=== PATIENT | female | born 1970 | race Asian ===

== ENCOUNTER 2019-11-14 16:16 | Emergency (ER) | payer SELFPAY ==
[2019-11-14] MEDS ORDERED: NA CHLORIDE 0.9% 1,000 ML ONE ×2 (18:43→19:03)
[2019-11-14] MEDS ORDERED: ONDANSETRON 4 MG/2 ML VIAL ONE (18:46)
[2019-11-14 18:55] LABS: Urine Blood NEGATIVE (NEG); Urine Glucose NEGATIVE (NEG); Urine Protein NEGATIVE (NEG)
[2019-11-14] MEDS ORDERED: MORPHINE 2 MG/ML SYR ONE (19:03)
[2019-11-14] MEDS ORDERED: PROMETHAZINE INJ 25 MG/ML AMP ONE (19:03)
[2019-11-14] MEDS ORDERED: CIPROFLOXACIN 400mg IV 400 MG/200 ML BAG IV ONE (19:03)
[2019-11-14] MEDS ORDERED: METRONIDAZOLE 500mg IVPB 500 MG/100 ML BAG IV ONE (19:03)
[2019-11-14] MEDS ORDERED: ACETAMINOPHEN 325 MG TABLET ONE (19:06)
[2019-11-14 20:28] LABS: Absolute Lymphocytes (CBC) 1.5 K/uL (0.7-4.9); Basophils % 0.3 % (0-1.3); Lymphocytes % 22.7 % (15.3-44.8); RBC Red Blood Cell Count 4.19 M/uL (3.86-4.86)
[2019-11-14 20:46] LABS: Albumin 3.6 g/dL (3.4-5.0); Bilirubin Direct 0.1 mg/dL (0-0.2); Bilirubin Total 0.6 mg/dL (0.2-1.0); Potassium 3.6 mmol/L (3.5-5.1); Protein, Total 6.8 g/dL (6.4-8.2)
--- NOTE | 2019-11-14 20:48 | EDPHYS ---
Physician Documentation [facility] Name: Flaquita Cantu Age: 49 yrs Sex: Female : 1970 Arrival Date: 11/14/2019 Time: 16:20 Bed 6 Private MD: TOLU Physician Jimmy Koo HPI: 11/13 18:43 This 49 yrs old Female presents to ER via Ambulatory with complaints of Abdominal slade Pain, Diarrhea, Decreased Appetite. 18:43 The patient presents to the emergency department with nausea, diarrhea, that is slade continuous. Onset: The symptoms/episode began/occurred 3 day(s) ago. Possible causes: unknown. The symptoms are aggravated by food , The symptoms are alleviated by nothing. remaining still. Associated signs and symptoms: The patient has no apparent associated signs or symptoms. Severity of symptoms: At their worst the symptoms were moderate in the emergency department the symptoms are unchanged. The patient has not experienced similar symptoms in the past. 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 - Social history:: Smoking status: Patient denies any tobacco usage or history of. ROS: 18:45 Constitutional: Negative for fever, chills, and weight loss, Eyes: Negative for injury, slade pain, redness, and discharge, ENT: Negative for injury, pain, and discharge, Neck: Negative for injury, pain, and swelling, Cardiovascular: Negative for chest pain, palpitations, and edema, Respiratory: Negative for shortness of breath, cough, wheezing, and pleuritic chest pain, Back: Negative for injury and pain, : Negative for injury, bleeding, discharge, and swelling, MS/Extremity: Negative for injury and deformity, Skin: Negative for injury, rash, and discoloration, Neuro: Negative for headache, weakness, numbness, tingling, and seizure, Psych: Negative for depression, anxiety, suicide ideation, homicidal ideation, and hallucinations, Allergy/Immunology: Negative for hives, rash, and allergies, Endocrine: Negative for neck swelling, polydipsia, polyuria, polyphagia, and marked weight changes, Hematologic/Lymphatic: Negative for swollen nodes, abnormal bleeding, and unusual bruising. 18:45 Abdomen/GI: Positive for abdominal pain, diarrhea. Exam: 18:45 Constitutional: This is a well developed, well nourished patient who is awake, alert, slade and in no acute distress. Head/Face: Normocephalic, atraumatic. Eyes: Pupils equal round and reactive to light, extra-ocular motions intact. Lids and lashes normal. Conjunctiva and sclera are non-icteric and not injected. Cornea within normal limits. Periorbital areas with no swelling, redness, or edema. ENT: Nares patent. No nasal discharge, no septal abnormalities noted. Tympanic membranes are normal and external auditory canals are clear. Oropharynx with no redness, swelling, or masses, exudates, or evidence of obstruction, uvula midline. Mucous membranes moist. Neck: Trachea midline, no thyromegaly or masses palpated, and no cervical lymphadenopathy. Supple, full range of motion without nuchal rigidity, or vertebral point tenderness. No Meningismus. Chest/axilla: Normal chest wall appearance and motion. Nontender with no deformity. No lesions are appreciated. Cardiovascular: Regular rate and rhythm with a normal S1 and S2. No gallops, murmurs, or rubs. Normal PMI, no JVD. No pulse deficits. Respiratory: Lungs have equal breath sounds bilaterally, clear to auscultation and percussion. No rales, rhonchi or wheezes noted. No increased work of breathing, no retractions or nasal flaring. Back: No spinal tenderness. No costovertebral tenderness. Full range of motion. Female : Normal external genitalia. Skin: Warm, dry with normal turgor. Normal color with no rashes, no lesions, and no evidence of cellulitis. MS/ Extremity: Pulses equal, no cyanosis. Neurovascular intact. Full, normal range of motion. Neuro: Awake and alert, GCS 15, oriented to person, place, time, and situation. Cranial nerves II-XII grossly intact. Motor strength 5/5 in all extremities. Sensory grossly intact. Cerebellar exam normal. Normal gait. 18:45 Abdomen/GI: Inspection: abdomen appears normal, Bowel sounds: hyperactive, Palpation: mild abdominal tenderness, in all quadrants, Liver: no appreciated palpable abnormalities, Hernia: not appreciated. 18:50 Neck: ROM/movement: is normal, no acute changes, Meningeal signs: are not present, slade Kernig's sign is negative, Brudzinski's sign is negative. 19:31 Respiratory: Exam negative for acute changes, accessory muscles, bronchial sounds, slade chest tenderness, chest pain, decreased breath sounds, grunting, nasal flaring, paradoxical movement, purse lip breathing, prolonged exhalation, respiratory distress, intercostal retractions, rhonchi, shortness of breath, splinting, stridor, wheezing, tachypnea. 19:31 Musculoskeletal/extremity: DVT Exam: No signs of deep vein thrombosis. no pain, no swelling, no tenderness, negative Homans' sign noted on exam, no appreciated bluish discoloration, no erythema, no increased warmth. Vital Signs: 16:29 BP 140 / 75; Pulse 58; Resp 15 S; Temp 98.4(TE); Pulse Ox 99% on R/A; Weight 58.97 kg; ca1 Height 5 ft. 4 in. (164 cm); Pain 7/10; 20:28 BP 129 / 69; Pulse 63; Resp 16; Pulse Ox 98% on R/A; ea 16:29 Body Mass Index 21.92 (58.97 kg, 164 cm) ca1 MDM: 17:31 Patient medically screened. slade 18:47 Differential diagnosis: Nonspecific abd pain, gastritis, cholecystitis, pancreatitis, slade appendicitis, diverticulitis, viral gastroenteritis, gastroenteritis, diverticulitis, gastritis. Data reviewed: vital signs, nurses notes, lab test result(s), radiologic studies, CT scan. 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 Counseling: I had a detailed discussion with the patient and/or guardian regarding: the historical points, exam findings, and any diagnostic results supporting the discharge/admit diagnosis, lab results, radiology results, the need for outpatient follow up, for definitive care, a calenderer. 19:32 ED course: Jovan Banks to check labs and ct's, dispo accordingly. slade 20:38 ED course: Patient declined CT head and abdomen when the tech came to get her for jr8 imaging. Stated that she was ok and did not feel that it was necessary at this time . 11/13 17:34 Order name: Basic Metabolic Panel; Complete Time: 20:47 [facility] 11/13 17:34 Order name: CBC with Diff; Complete Time: 20:38 [facility] 11/13 17:34 Order name: Hepatic Function; Complete Time: 20:47 [facility] 11/13 17:34 Order name: Lipase; Complete Time: 20:47 [facility] 11/13 17:34 Order name: Urine Culture [facility] 11/13 18:02 Order name: Urine Dipstick--Ancillary (enter results); Complete Time: 19:10 11/13 18:02 Order name: Urine --Ancillary (enter results); Complete Time: 19:10 11/13 18:49 Order name: COVID-19 [facility] 11/13 17:34 Order name: IV Saline Lock; Complete Time: 18:37 [facility] 11/13 17:34 Order name: Labs collected and sent; Complete Time: 18:37 [facility] 11/13 17:34 Order name: Urine Dipstick-Ancillary (obtain specimen); Complete Time: 18:37 [facility] Administered Medications: 18:30 Drug: NS 0.9% 1000 ml Route: IV; Rate: 1 bolus; Site: right antecubital; [facility] 18:35 Drug: Zofran (Ondansetron) 4 mg Route: IVP; Site: right antecubital; 7 18:45 Follow up: Response: No adverse reaction; Nausea unchanged [facility] 19:00 Drug: NS 0.9% 1000 ml Route: IV; Rate: 1 bolus; Site: right antecubital; jl7 19:01 Drug: Phenergan 12.5 mg Route: IVP; Site: right antecubital; 7 20:35 Follow up: Response: No adverse reaction 19:05 Drug: Tylenol 650 mg Route: PO; jl7 20:36 Follow up: Response: No adverse reaction 19:06 Drug: morphine 2 mg Route: IVP; Site: right antecubital; 7 20:00 Follow up: Response: No adverse reaction; Pain is decreased; RASS: Alert and Calm (0) ea 19:07 Drug: Cipro 400 mg Volume: 200 ml; Route: IVPB; Infused Over: 60 mins; Site: right jl7 antecubital; 20:34 Follow up: Response: No adverse reaction; IV Status: Completed infusion; IV Intake: ea 200ml 19:10 Drug: Flagyl 500 mg Volume: 100 ml; Route: IVPB; Rate: 200 ml/hr; Infused Over: 30 jl7 mins; Site: right antecubital; 20:00 Follow up: Response: No adverse reaction; IV Status: Completed infusion ea Disposition: 11/14 08:19 Co-signature as Attending Physician, Jimmy Koo MD I agree with the assessment and [facility] plan of care. Disposition: 11/14/19 20:47 Discharged to Home. Impression: Abdominal tenderness, Diarrhea, unspecified, Headache, Nausea. - Condition is Stable. - Discharge Instructions: Abdominal Pain, Adult, Food Choices to Help Relieve Diarrhea, Adult, Diarrhea, Adult, General Headache Without Cause, Abdominal Pain, Adult, Zwmo-[id number]-Tiqe, Diarrhea, Adult, Fhxo-lg-Dzut, General Headache Without Cause, Rtpk-hg-Adys. - Prescriptions for Bentyl 20 mg Oral Tablet - take 1 tablet by ORAL route every 6 hours As needed; 20 tablet. Cipro 250 mg Oral Tablet - take 1 tablet by ORAL route every 12 hours; 14 tablet. Flagyl 250 mg Oral Tablet - take 1 tablet by ORAL route every 8 hours for 7 days; 21 tablet. Pepcid 20 mg Oral Tablet - take 1 tablet by ORAL route every 12 hours for 10 days; 20 tablet. Zofran 4 mg Oral Tablet - take 1 tablet by ORAL route every 12 hours As needed; 20 tablet. - Medication Reconciliation Form, Thank You Letter, Antibiotic Education, Prescription Opioid Use form. - Follow up: Private Physician; When: 2 - 3 days; Reason: Recheck today's complaints, Continuance of care, Re-evaluation by your physician. Follow up: Olu Vaz; When: 2 - 3 days; Reason: Recheck today's complaints, Re-evaluation by your physician. - Problem is new. - Symptoms have improved. Signatures: Dispatcher [employer] EDJimmy Fenrandes MD MD cha Roszak, Josh, PA PA jr8 Anastasiia Klein RN RN jl7 Odessa Archer RN [place] ca1 Naye Butler RN, ea Corrections: (The following items were deleted from the chart) 11/13 20:16 18:43 Abdomen Pelvis W Con+CT.RAD.BRZ ordered. EDWY EDMS 20:16 18:51 Head Brain Wo Cont+CT.RAD.BRZ ordered. EDWY EDMS 21:07 20:47 11/14/2019 20:47 Discharged to Home. Impression: Abdominal tenderness; Diarrhea, jr8 unspecified; Headache; Nausea. Condition is Stable. Discharge Instructions: Abdominal Pain, Adult, Food Choices to Help Relieve Diarrhea, Adult, Diarrhea, Adult, General Headache Without Cause, Abdominal Pain, Adult, Pege-um-Znts, Diarrhea, Adult, Cexl-am-Rgot, General Headache Without Cause, Ymuq-zp-Ceda. Prescriptions for Bentyl 20 mg Oral Tablet - take 1 tablet by ORAL route every 6 hours As needed; 20 tablet, Cipro 250 mg Oral Tablet - take 1 tablet by ORAL route every 12 hours; 14 tablet, Flagyl 250 mg Oral Tablet - take 1 tablet by ORAL route every 8 hours for 7 days; 21 tablet, Pepcid 20 mg Oral Tablet - take 1 tablet by ORAL route every 12 hours for 10 days; 20 tablet, Zofran 4 mg Oral Tablet - take 1 tablet by ORAL route every 12 hours As needed; 20 tablet. and Forms are Medication Reconciliation Form, Thank You Letter, Antibiotic Education, Prescription Opioid Use. Follow up: Private Physician; When: 2 - 3 days; Reason: Recheck today's complaints, Continuance of care, Re-evaluation by your physician. Follow up: Olu Vaz; When: 2 - 3 days; Reason: Recheck today's complaints, Re-evaluation by your physician. Problem is new. Symptoms have improved. jr8
--- NOTE | 2019-11-14 20:48 | ER ---
Nurse's Notes [facility] Name: Flaquita Cantu Age: 49 yrs Sex: Female : 1970 Arrival Date: 11/14/2019 Time: 16:20 Bed 6 Private MD: Diagnosis: Abdominal tenderness;Diarrhea, unspecified;Headache;Nausea Presentation: 11/13 16:29 Chief complaint: Patient states: Fiance: Abdominal pain, nausea and diarrhea since ca1 . Denies vomiting. Denies fever. Coronavirus screen: Client indicates they have traveled out of the [place] in the last 14 days. Client traveled to: [facility]. 1 month today At this time, the client does not indicate any symptoms associated with coronavirus-19. The client indicates previous COVID test results are pending. Date of collection: October 10, 2019. Ebola Screen: Patient negative for fever greater than or equal to 101.5 degrees Fahrenheit, and additional compatible Ebola Virus Disease symptoms Patient denies exposure to infectious person. No symptoms or risks identified at this time. Initial Sepsis Screen: Does the patient meet any 2 criteria? No. Patient's initial sepsis screen is negative. Does the patient have a suspected source of infection? No. Patient's initial sepsis screen is negative. Risk Assessment: Do you want to hurt yourself or someone else? Patient reports no desire to harm self or others. Onset of symptoms was November 14, 2019. 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 - Social history:: Smoking status: Patient denies any tobacco usage or history of. Screenin:48 Abuse screen: Denies threats or abuse. Denies injuries from another. Nutritional jl7 screening: No deficits noted. Tuberculosis screening: No symptoms or risk factors identified. 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 General: Appears in no apparent distress. jl7 uncomfortable, Behavior is calm, cooperative, appropriate for age. Pain: Complains of pain in umbilical area Pain does not radiate. Pain currently is 7 out of 10 on a pain scale. Pain began 11-10-2019. Neuro: Level of Consciousness is awake, alert, obeys commands. Cardiovascular: Patient's skin is warm and dry. Respiratory: Airway is patent Respiratory effort is even, unlabored, Respiratory pattern is regular, symmetrical, Denies cough, shortness of breath. GI: Abdomen is non-distended, Reports diarrhea. : Denies burning with urination. Derm: Skin is pink, warm \T\ dry. 20:27 Reassessment: Patient and/or family updated on plan of care and expected duration. Pain ea level reassessed. Patient is alert, oriented x 3, equal unlabored respirations, skin warm/dry/pink. Patient states feeling better. Vital Signs: 16:29 BP 140 / 75; Pulse 58; Resp 15 S; Temp 98.4(TE); Pulse Ox 99% on R/A; Weight 58.97 kg; ca1 Height 5 ft. 4 in. (164 cm); Pain 7/10; 20:28 BP 129 / 69; Pulse 63; Resp 16; Pulse Ox 98% on R/A; ea 16:29 Body Mass Index 21.92 (58.97 kg, 164 cm) ca1 ED Course: 16:20 Patient arrived in ED. as 16:37 Triage completed. ca1 16:40 Arm band placed on right wrist. ca1 17:25 Girma Templeton, RN is Primary Nurse. bp 17:31 Jimmy Koo MD is Attending Physician. slade 17:38 Girma Templeton, RN is Primary Nurse. bp 17:48 Anastasiia Klein, [place] is Primary Nurse. jl7 17:48 Patient has correct armband on for positive identification. Placed in gown. Bed in low jl7 position. Call light in reach. Side rails up X 1. Pulse ox on. NIBP on. Warm blanket given. 18:38 Initial lab(s) drawn, by me, sent to lab. Urine collected: clean catch specimen, clear. jl7 Inserted saline lock: 20 gauge in right antecubital area, using aseptic technique. Blood collected. 19:21 Report given to [place] Thomas. jl7 19:31 Jovan Banks PA is PHCP. jr8 20:47 Olu Vaz MD is Referral Physician. jr8 Administered Medications: 18:30 Drug: NS 0.9% 1000 ml Route: IV; Rate: 1 bolus; Site: right antecubital; jl7 18:35 Drug: Zofran (Ondansetron) 4 mg Route: IVP; Site: right antecubital; jl7 18:45 Follow up: Response: No adverse reaction; Nausea unchanged jl7 19:00 Drug: NS 0.9% 1000 ml Route: IV; Rate: 1 bolus; Site: right antecubital; jl7 19:01 Drug: Phenergan 12.5 mg Route: IVP; Site: right antecubital; jl7 20:35 Follow up: Response: No adverse reaction ea 19:05 Drug: Tylenol 650 mg Route: PO; jl7 20:36 Follow up: Response: No adverse reaction ea 19:06 Drug: morphine 2 mg Route: IVP; Site: right antecubital; jl7 20:00 Follow up: Response: No adverse reaction; Pain is decreased; RASS: Alert and Calm (0) ea 19:07 Drug: Cipro 400 mg Volume: 200 ml; Route: IVPB; Infused Over: 60 mins; Site: right jl7 antecubital; 20:34 Follow up: Response: No adverse reaction; IV Status: Completed infusion; IV Intake: ea 200ml 19:10 Drug: Flagyl 500 mg Volume: 100 ml; Route: IVPB; Rate: 200 ml/hr; Infused Over: 30 jl7 mins; Site: right antecubital; 20:00 Follow up: Response: No adverse reaction; IV Status: Completed infusion ea Intake: 20:34 IV: 200ml; Total: 200ml. ea Outcome: 20:47 Discharge ordered by jrBrian 21:07 Patient left the ED. jr8 Addendum: 11/16/2019 14:45 Addendum: COVID-19 Result: Negative result given to RN to notify pt. Attempted to s s contact pt regarding negative COVID-19 swab results. Unable to leave voice mail due to the number provided was either not a working number, the voice mail has not been set up, or the voice mailbox is full.. Signatures: Jimmy Koo MD MD cha Martinez, Amelia as Smirch, Shelby, RN RN Jovan Gramajo PA PA jr8 Anastasiia Klein RN RN jl7 Naye Butler RN RN Girma Barrett, RN RN bp Odessa Archer RN RN ca1 Corrections: (The following items were deleted from the chart) 11/13 16:42 16:29 Coronavirus screen: Client indicates they have traveled out of the [place] in the ca1 last 14 days. Client traveled to: [place]. 1 month today At this time, the client does not indicate any symptoms associated with coronavirus-19. ca1
[2019-11-14 23:03] VITALS: TEMP 98.4
[2019-11-14 23:04] VITALS: BP 129/69; O2SAT 98
== END 2019-11-14 21:07 | disposition home or self-care (01) ==
LOC: ER 16:16
DX: R19.7 Diarrhea, unspecified (principal); Z20.828 Contact with and (suspected) exposure to other viral communicable diseases; R51 Headache; R11.0 Nausea
CPT/HCPCS: 36415; 80048; 80076; 81003; 81025; 83690; 85025; 87086; 87088; 96365; 96375; 99284; J0744; J2270; J2405; J2550; J7030; U0002